=== PATIENT | male | born 1990 | race Caucasian/White ===

== ENCOUNTER 2019-09-09 01:30 | Emergency (ER) | payer OTHER ==
[~2019-09-09] VITALS: Ht 167.6 cm; Wt 127.0 kg
[2019-09-09] MEDS ORDERED: ACETAMINOPHEN 325MG TABLET PO STA (02:38)
[2019-09-09] MEDS ORDERED: SODIUM CHLORIDE 0.9% 1,000 ML IV ONE (02:38)
[2019-09-09] MEDS ORDERED: LORAZEPAM 0.5MG TABLET PO ONE (02:45)
[2019-09-09 06:30] VITALS: BP 118/61
== END 2019-09-09 06:35 | disposition home or self-care (01) ==
LOC: ER 01:41
DX: S00.83XA Contusion of other part of head, initial encounter (principal); Y35.893A Legal intervention involving other specified means, suspect injured, initial encounter; Y93.89 Activity, other specified; Y92.89 Other specified places as the place of occurrence of the external cause
CPT/HCPCS: 70486; 72125; 93005; 99285; J7030